=== PATIENT | female | born 1975 | race Caucasian/White ===

== ENCOUNTER 2017-01-08 10:58 | Emergency (ER) | payer BC ==
[2017-01-08 11:05] VITALS: BP 140/80; BMI 27.4
[2017-01-08 11:56] LABS: BILIRUBIN,URINE NEGATIVE (NEGATIVE); BLOOD/HEMOGLOBIN,URINE 5+ (NEGATIVE); GLUCOSE, URINE NEGATIVE (NEGATIVE); KETONES,URINE NEGATIVE (NEGATIVE); LEUKOCYTE ESTERASE ,URINE NEGATIVE (NEGATIVE); NITRITES,URINE NEGATIVE (NEGATIVE); PROTEIN,URINE 1+ (NEGATIVE); UROBILINOGEN,URINE NORMAL (NORMAL)
[2017-01-08 12:11] LABS: APPEARANCE,URINE CLEAR (CLEAR); BACTERIA,URINE NEGATIVE /HPF (NEGATIVE); COLOR,URINE YELLOW (YELLOW); RBC,URINE TNTC /HPF (NEGATIVE); SQUAMOUS EPITHELIAL CELL,UR FEW /HPF (NEGATIVE)
--- NOTE | 2017-01-08 12:37 | DR.GENAD ---
HPI - PCP Primary Care Physician: ERASMO CARRION - Complaint/Symptoms Chief Complaint Doctors Comments: Back pain after tubing 2 weeks ago. Chief Complaint:: PT HURT LOWER BACK TWO WEEKS AGO AFTER GOING RAFTING - Nurses notes reviewed Nurses Notes Review: Yes - Source History Provided: Patient - Mode of Arrival Mode of Arrival: Ambulatory - Timing Onset of Chief Complaint: 12/26/16 Came on: Suddenly - Duration Duration: Constant Duration: Days - Severity Severity: Moderate PMH - PMH Past Medical History: Yes Past Medical History Comment: THYROID Past Surgical History: Yes Surgical History: Thyroidectomy Past Surgical History Comment: TUBAL - Family History History of Family Medical Conditions: No - Social History Does patient currently use any type of tobacco product: No Have you used tobacco products in the last 12 months: No Type of Tobacco Use: None Does any household member use tobacco: No Alcohol Use: None Do you use any recreational Drugs:: No Lives With: Family Lives Where: Home - infectious screening In the last 2 months have you had wt loss of >10#?: NO Have you had fever, night sweats or hemotysis?: No Have you traveled outside the country in the last 6 months?: No Isolation: Standard ROS - Review of Systems Eyes: No Symptoms Reported ENTM: No Symptoms Reported Respiratoy: No Symptoms Reported Cardiovascular: No Symptoms Reported Gastrointestinal/Abdominal: No Symptoms Reported Genitourinary: No Symptoms Reported Neurological: No Symptoms Reported Musculoskeletal: Back Pain Integumentary: No Symptoms Reported Hematologic/Lymphatic: No Symptoms Reported Endocrine: No Symptoms Reported Psychiatric: No Symptoms Reported All Other Systems: Reviewed and Negative PE - Vital Signs Vitals: Temperature 98.4 F Pulse Rate 100 Respiratory Rate 18 Blood Pressure 140/80 O2 Sat by Pulse Oximetry 99 - General Limitations: No Limitations - Neck Neck Exam: Normal Inspection - Chest Chest Inspection: Normal Inspection - Respiratory Respiratory Exam: Normal Lung Sounds Bilat - Cardiovascular Cardiovascular Exam: Regular Rate, Normal Rhythm, Normal Heart Sounds - Back Back Exam: Paraspinal Tenderness - Neurologic Neurological Exam: Alert, Oriented X3, CN II-XII Intact - Psychiatric Psychiatric Exam: Normal Affect, Normal Mood - Skin Skin Exam: Warm, Dry, Intact ROR - Labs Reviewed Laboratory: Specimen Type Clean catch urine 01/08/17 11:34 Urine Color Yellow (YELLOW) 01/08/17 11:34 Urine Appearance Clear (CLEAR) 01/08/17 11:34 Urine pH 6.0 (5.0 - 8.0) 01/08/17 11:34 Ur Specific [place] 1.020 (1.000-1.030) 01/08/17 11:34 Urine Protein 1+ (NEGATIVE) 01/08/17 11:34 Urine Glucose (UA) Negative (NEGATIVE) 01/08/17 11:34 Urine Ketones Negative (NEGATIVE) 01/08/17 11:34 Urine Occult Blood 5+ (NEGATIVE) 01/08/17 11:34 Urine Nitrite Negative (NEGATIVE) 01/08/17 11:34 Urine Bilirubin Negative (NEGATIVE) 01/08/17 11:34 Urine Urobilinogen Normal (NORMAL) 01/08/17 11:34 Ur Leukocyte Esterase Negative (NEGATIVE) 01/08/17 11:34 Urine RBC Tntc /HPF (NEGATIVE) 01/08/17 11:34 Urine WBC 0-1 /HPF (NEGATIVE) 01/08/17 11:34 Ur Squamous Epith Cells Few /HPF (NEGATIVE) 01/08/17 11:34 Urine Bacteria Negative /HPF (NEGATIVE) 01/08/17 11:34 Ur Culture Indicated? No/not indicated 01/08/17 11:34 - Diagnosis Discharge Problem: Back contusion, Low back strain - Discharge Plan Disposition: 01 HOME, SELF-CARE Condition: Stable - Follow ups/Referrals Follow ups/Referrals: ADOLFO CARRION [Primary Care Provider] - 3 days - Instructions Instructions: Low Back Sprain With Rehab-SportsMed
[2017-01-08] MEDS ORDERED: TORADOL 60 MG VIAL IM ONE (12:40)
[2017-01-08] MEDS ORDERED: NORFLEX INJ IM ONE (12:41)
[2017-01-08] MEDS ORDERED: TORADOL 60 MG VIAL ONE (12:57)
[2017-01-08] MEDS ORDERED: NORFLEX INJ ONE (12:58)
--- NOTE | 2017-01-08 13:04 | RAD ---
Examination: X-rays of the lumbar spine. Clinical History: Low back pain status post injury. Technique: Three views of the lumbar spine were obtained. Comparison: None available. Findings: The vertebral body alignment is within normal limits. There is mild narrowing of the L4-L5 and L5-S1 intervertebral disc spaces, suggestive of disc degene rative changes. Minor vertebral body osteophytosis is seen at multiple levels in the lumbar spine. No acute fracture, dislocation or destructive bony lesion is noted. No spondylolysis or spondylolist hesis is noted. A large amount of stool is noted in the colon. A single calcific density is seen overlying the left hemipelvis, likely a phlebolith. Costochondral cartilage calcification is seen overlying the upper a bdomen. Impression: 1. No acute fracture or dislocation. 2. Mild lumbar spondylosis, as described above. 3. Mild narrowing of the L4-L5 and L5-S1 intervertebral disc spaces, suggestive of disc degenerative changes. Reported By:
== END 2017-01-08 13:15 | disposition home or self-care (01) ==
LOC: ER 11:09
DX: S30.0XXA Contusion of lower back and pelvis, initial encounter (principal); S39.012A Strain of muscle, fascia and tendon of lower back, initial encounter; M47.896 Other spondylosis, lumbar region; Y33.XXXA Other specified events, undetermined intent, initial encounter; Y92.9 Unspecified place or not applicable
CPT/HCPCS: 72100; 81001; 96372; 99283; J1885; J2360